=== PATIENT | male | born 1950 | race Native Hawaiian/Other Pacific Islander ===

== ENCOUNTER 2016-12-30 08:02 | Day surgery (SDC) | payer OTHER ==
[2015-03-28 08:14] VITALS: BMI 25.8
[2016-12-30 08:56] VITALS: RESP 18
--- NOTE | 2016-12-30 10:46 | CP.SDSHP ---
Same Day Surgery H & P - History Proposed Procedure: US guided FNA of right parotid mass Pre-Op Diagnosis: Right parotid mass - Allergies Allergies: Allergies No Known Allergies Allergy (Verified 03/28/15 08:10) - Physical Exam Vital Signs: Vital Signs 12/30/16 08:28 Temperature 97.6 F Pulse Rate 70 Respiratory 18 Rate Blood Pressure 137/77 O2 Sat by Pulse 98 Oximetry Mental Status: Alert & Oriented x3 Neuro: WNL Heart: WNL Lungs: WNL - Impression Impression: Pt with a complex cystyc irregular right parotid mass measuring 1.6 cm. Plan US guided FNA. Pt. Evaluated Today:Candidate for Anesthesia & Procedure: No - Date & Time Date: 12/30/16 Time: 10:30 Short Stay Discharge - Short Stay Discharge Admitting Diagnosis/Reason for Visit: PAROTID MASS Disposition: HOME/ ROUTINE
--- NOTE | 2016-12-30 10:47 | PCM.SURG1 ---
Surgeon's Initial Post Op Note - Surgeon's Notes Surgeon: Cruz Mott MD Velvet Steamer: NONE Type of Anesthesia: Local Pre-Operative Diagnosis: Right parotid mass Operative Findings: US showed a 1.6 cm irregular cystic mass in the right parotid. Post-Operative Diagnosis: Right parotid mass Operation Performed: US guided FNA. Specimen/Specimens Removed: 25 gauge x 4 passes Estimated Blood Loss: EBL {In ML}: 1 Blood Products Given: N/A Drains Used: No Drains Post-Op Condition: Good Date of Surgery/Procedure: 12/30/16 Time of Surgery/Procedure: 10:45
[2016-12-30 11:21] VITALS: BP 141/70; PULSE 68; TEMP 97.8; O2SAT 99
--- NOTE | 2016-12-31 15:32 | US ---
PROCEDURE: DATE OF PROCEDURE: 12/30/2016 PROCEDURE: 1. Ultrasound-guided FNA of a right parotid mass, CPT 39137 2. Ultrasound guidance for procedure, CPT 67337 Medications: 4cc 1 percent lidocaine HISTORY: right parotid mass TECHNIQUE: Following informed consent, the right parotid area was marked. Procedure time out was called and the parotid area was prepped and draped in the usual sterile manner. A limited ultrasound was performed of the right parotid which shows a 1.6 centimeter right parotid mass. The mass is hypoechoic. Ultrasound-guided FNA was performed. Under ultrasound guidance, a 25 gauge needle was advanced into the nodule. A FNA sample was placed on slides and sent for routine pathology. Four passes were made into the nodule. A post biopsy ultrasound showed no hematoma. IMPRESSION: Ultrasound-guided FNA right parotid mass.
== END 2016-12-30 11:15 | disposition home or self-care (01) ==
LOC: C.SPRAD 08:02
PROVIDERS: ATTEND Radiology Vascular & Interventional Radiology
DX: R22.0 Localized swelling, mass and lump, head (principal)

== ENCOUNTER → 2017-02-24 | Day surgery (SDC) | payer OTHER ==
[2015-03-28 08:14] VITALS: BMI 25.8
--- NOTE | 2017-02-24 12:03 | CP.SDSHP ---
Same Day Surgery H & P - History Proposed Procedure: US guided FNA of right parotid mass Pre-Op Diagnosis: right parotid mass - Allergies Allergies: Allergies No Known Allergies Allergy (Verified 03/28/15 08:10) - Physical Exam Mental Status: Alert & Oriented x3 Neuro: WNL - Impression Impression: US showed a 1.08 cm hypoechoic irregular right parotid lesion. Plan US guided FNA. Pt. Evaluated Today:Candidate for Anesthesia & Procedure: No - Date & Time Date: 02/24/17 Time: 12:00 Short Stay Discharge - Short Stay Discharge Admitting Diagnosis/Reason for Visit: LOCALIZED SWELLING, MASS AND LUMP, NECK Disposition: HOME/ ROUTINE
--- NOTE | 2017-02-24 12:10 | PCM.SURG1 ---
Surgeon's Initial Post Op Note - Surgeon's Notes Surgeon: Cruz Mott MD World Language Teacher: NONE Type of Anesthesia: Local Pre-Operative Diagnosis: Right parotid nodule Operative Findings: 1.1 cm hypoechoic right parotid nodule Post-Operative Diagnosis: Right parotid nodule Operation Performed: US guided FNA Specimen/Specimens Removed: 25 g FNA x 4 passes Estimated Blood Loss: EBL {In ML}: 0 Blood Products Given: N/A Drains Used: No Drains Post-Op Condition: Good Date of Surgery/Procedure: 02/24/17 Time of Surgery/Procedure: 12:00
--- NOTE | 2017-02-24 13:27 | US ---
PROCEDURE: DATE OF PROCEDURE: 02/24/2017 PROCEDURE: 1. Ultrasound-guided FNA of a right parotid mass, CPT 37548 2. Ultrasound guidance for procedure, CPT 42219 Medications: 3cc 1 percent lidocaine HISTORY: right parotid mass TECHNIQUE: Following informed consent, the right parotid area was marked. Procedure time out was called and the parotid area was prepped and draped in the usual sterile manner. A limited ultrasound was performed of the right parotid which shows a 1.3 centimeter right parotid mass. The mass is hypoechoic. Ultrasound-guided FNA was performed. Under ultrasound guidance, a 25 gauge needle was advanced into the nodule. A FNA sample was placed on slides and sent for routine pathology. Four passes were made into the nodule. A post biopsy ultrasound showed no hematoma. IMPRESSION: Ultrasound-guided FNA right parotid mass.
== END | disposition home or self-care (01) ==
LOC: C.SPRAD 08:46
PROVIDERS: ATTEND Radiology Vascular & Interventional Radiology
DX: R22.1 Localized swelling, mass and lump, neck (principal)